=== PATIENT | female | born 1955 | race Caucasian/White ===

== ENCOUNTER 2019-05-22 09:08 | Day surgery (SDC) | payer MEDICARE, OTHER ==
[2019-05-21 14:13] VITALS: BMI 30.1
[2019-05-22] MEDS ORDERED: Fentanyl 250 MCG/5 ML VIAL ONE (09:18)
[2019-05-22] MEDS ORDERED: Oxymetazoline HCl 0.05% ( 15 ML ) ONE (09:36)
[2019-05-22] MEDS ORDERED: Rocuronium Bromide 10 MG/ML (10ML VIAL) ONE (09:42)
[2019-05-22] MEDS ORDERED: Lidocaine 1% PF 5 ML VIAL ONE (09:42)
[2019-05-22] MEDS ORDERED: Dexamethasone 20 MG/5 ML VIAL ONE (09:42)
[2019-05-22] MEDS ORDERED: Glycopyrrolate 0.2 MG/ML 5 ML SYRINGE ONE (09:42)
[2019-05-22] MEDS ORDERED: PROPOFOL 200 MG/20 ML VIAL ONE (09:42)
[2019-05-22] MEDS ORDERED: ePHEDrine/0.9% NaCl/PF SYRINGE 50 mg/10 ml ONE (09:42)
[2019-05-22] MEDS ORDERED: Ondansetron PF 4 MG/2 ML Vial ONE (09:42)
[2019-05-22] MEDS ORDERED: Scopolamine 1.5 mg/72 hour Patch ONE (10:04)
[2019-05-22] MEDS ORDERED: Labetalol HCl 100 MG/20 ML VIAL ONE (12:29)
[2019-05-22] MEDS ORDERED: HYDROcodone/Acetaminophen 5/325 mg Tablet ONE (14:02)
--- NOTE | 2019-05-23 07:36 | OP ---
DATE OF PROCEDURE: 05/22/2019 PREOPERATIVE DIAGNOSES: 1. Chronic rhinosinusitis. 2. Bilateral inferior turbinate hypertrophy. 3. Nasal obstruction. POSTOPERATIVE DIAGNOSES: 1. Chronic rhinosinusitis. 2. Bilateral inferior turbinate hypertrophy. 3. Nasal obstruction. PROCEDURES PERFORMED: 1. Bilateral endoscopic sinus surgery, total ethmoidectomies. 2. Bilateral endoscopic sinus surgery, maxillary antrostomies. 3. Bilateral endoscopic sinus surgery, frontal sinusotomies. 4. Bilateral endoscopic sinus surgery, sphenoidotomies. 5. Bilateral inferior turbinate submucosal resection. ESTIMATED BLOOD LOSS: 20 mL. COMPLICATIONS: None. ANESTHESIA: GETA. DESCRIPTION OF PROCEDURE: Following this, 1% lidocaine with 1:100,000 epinephrine were injected into the middle turbinates and lateral nasal wall bilaterally. Following this, the 0-degree endoscope was used to visualize the middle turbinate and the middle turbinate was medially fractured using a Brundidge elevator. Following this, the uncinate process was identified and was examined. The uncinate process was noted to be inflamed and laterally displaced bilaterally. Following this, a ball-ended probe was used to anteriorly fracture the uncinate process bilaterally. Following this, the 0-degree microdebrider and the up-biting Blakesley forceps were used to remove the uncinate process bilaterally. Following this, the natural maxillary sinus ostia was identified with the 0-degree endoscope and the ball-ended probe. The natural maxillary ostia were then widened using a 40-degree microdebrider and the straight Blakesley forceps bilaterally. Following this, the ethmoidal bulla was identified bilaterally. A 0-degree microdebrider was used to puncture the ethmoidal bulla on its medial and inferior aspect bilaterally. Following this, the 0-degree microdebrider and the up-biting Blakesley forceps were used to remove the ethmoidal bulla. Following this, the grand lamella was identified posterior to this area and was punctured using the 0-degree microdebrider bilaterally. Following this, the ethmoidal cells were opened from the posterior to the anterior using the 0-degree microdebrider, the 40-degree microdebrider and the up-biting Blakesley forceps bilaterally. Following this, the 45-degree endoscope and the 40-degree microdebrider blade were used to further remove the anterior ethmoidal cells to the level of the frontal sinus recess bilaterally. Following this, the sphenoid sinuses were approached through the previous ethmoidectomies using the Peters tip suction. The anterior wall of the sphenoid sinus was identified and was punctured using a Peters tip suction and then the sphenoidotomy was then widened medially and inferiorly using the 0-degree microdebrider bilaterally. Following this, the 45-degree endoscope and the 40-degree microdebrider blade were used to further open the anterior ethmoidal cells and frontal recess and frontal sinus ostia bilaterally. Following this, nasal cavity was irrigated and NasoPore packing was placed within the middle meatus. The inferior turbinates were then punctured with a submucosal microdebrider and submucosal resection was performed of the anterior and inferior portions of the inferior turbinates bilaterally. The patient tolerated the procedure well. Job ID: [id number]
== END 2019-05-22 14:25 | disposition home or self-care (01) ==
LOC: SDC 09:08
PROVIDERS: ATTEND Otolaryngology Plastic Surgery within the Head & Neck
PROC: 09TL0ZZ Resection of Nasal Turbinate, Open Approach (ICD-10-PCS; principal; 2019-05-22)
PROC: 09TV8ZZ Resection of Left Ethmoid Sinus, Via Natural or Artificial Opening Endoscopic (ICD-10-PCS; 2019-05-22)
PROC: 09TU8ZZ Resection of Right Ethmoid Sinus, Via Natural or Artificial Opening Endoscopic (ICD-10-PCS; 2019-05-22)
PROC: 099T8ZZ Drainage of Left Frontal Sinus, Via Natural or Artificial Opening Endoscopic (ICD-10-PCS; 2019-05-22)
PROC: 099W8ZZ Drainage of Right Sphenoid Sinus, Via Natural or Artificial Opening Endoscopic (ICD-10-PCS; 2019-05-22)
PROC: 099X8ZZ Drainage of Left Sphenoid Sinus, Via Natural or Artificial Opening Endoscopic (ICD-10-PCS; 2019-05-22)
PROC: 099Q8ZZ Drainage of Right Maxillary Sinus, Via Natural or Artificial Opening Endoscopic (ICD-10-PCS; 2019-05-22)
PROC: 099R8ZZ Drainage of Left Maxillary Sinus, Via Natural or Artificial Opening Endoscopic (ICD-10-PCS; 2019-05-22)
PROC: 099S8ZZ Drainage of Right Frontal Sinus, Via Natural or Artificial Opening Endoscopic (ICD-10-PCS; 2019-05-22)
DX: J32.9 Chronic sinusitis, unspecified (principal); J34.3 Hypertrophy of nasal turbinates; J34.89 Other specified disorders of nose and nasal sinuses; J30.9 Allergic rhinitis, unspecified; E03.9 Hypothyroidism, unspecified; I10 Essential (primary) hypertension; Z87.891 Personal history of nicotine dependence; Z79.899 Other long term (current) drug therapy; Z88.0 Allergy status to penicillin; Z88.2 Allergy status to sulfonamides
CPT/HCPCS: 85014; 85018; J0131; J1100; J2001; J2405; J2704; J3010

== ENCOUNTER 2019-07-24 09:52 | Outpatient (CLI) | payer MEDICARE, OTHER ==
--- NOTE | 2019-07-24 10:58 | ULT ---
THYROID ULTRASOUND: HISTORY: Hypothyroidism. COMPARISON: None. FINDINGS: Thyroid isthmus measures 0.31 cm. Right thyroid lobe measures 1.3 x 1.4 x 4.1 cm. Left thyroid lobe measures 1.3 x 1.6 x 4.0 cm. In the lower pole the left thyroid lobe is a solid echotexture isoechoic mass, measuring 1.3 x 0.9. Enlarged left supraclavicular lymph node, measuring 1.9 x 0.6 x 0.8 cm. Enlarged right supraclavicular lymph node, measuring 1.0 x 0.5 cm, 2.5 x 0.7 cm and 2.1 x 2.6 cm. IMPRESSION: 1. Solid nodule in the lower pole the left thyroid lobe. Patient states that this has been biopsied b efore. Please refer to previous pathologic diagnosis. If pathologic diagnosis is not available, consider six month follow-up ultrasound. 2. Enlarged bilateral supraclavicular lymph nodes of uncertain significance in etiology. Correlate cl inically. Consider post contrast soft tissue neck CT. CODE T Transcribed Date/Time: 07/24/2019 11:35 AM
== END 2019-07-24 09:53 | disposition home or self-care (01) ==
LOC: SCSULT 09:52
PROVIDERS: ATTEND Internal Medicine Endocrinology, Diabetes & Metabolism
DX: E03.9 Hypothyroidism, unspecified (principal); E04.1 Nontoxic single thyroid nodule
CPT/HCPCS: 76536

== ENCOUNTER 2019-08-14 09:54 | Outpatient (CLI) | payer MEDICARE, OTHER ==
--- NOTE | 2019-08-14 14:01 | CT ---
CT neck soft tissues with contrast: DATE: 08/14/2019 HISTORY: 64-year-old female with enlarged supraclavicular lymph nodes on thyroid ultrasound COMPARISON: No prior neck CTs. FINDINGS: The base of tongue (lingual tonsil) is diffusely enlarged, measuring approximately 3 x 3 x 2 cm. It e xtends laterally encroaching upon the expected locations of the palatine tonsils. The adenoids are not enlarged. There are scattered shotty bilateral cervical lymph nodes. These include bilateral supr aclavicular lymph nodes corresponding to those mentioned on the ultrasound of the neck report. None of them have short axes that exceed 1 cm, and none have necrotic centers or irregular margins. They a re all cyr shaped. Mildly enlarged bilateral jugulodigastric level 2 lymph nodes are present, including one in the left that is approximately 1 x 1.5 cm on axial images. Otherwise, and no major pathology is identified involving the carotid, parotid, submandibular, paraph aryngeal, retropharyngeal, fur puller, perivertebral, and posterior cervical, spaces. No thyromegaly. Larynx is normal. Lung apices are grossly clear. IMPRESSION: 1. Significant enlargement of the lingual tonsil. Hyperplasia versus neoplasia. 2. Scattered shotty cervical lymph nodes are not particularly worrisome. However, if biopsy of the li ngual tonsil reveals malignancy, then PET scan would be recommended to determine whether any of the cervical lymph nodes are FDG-avid.
== END 2019-08-14 09:55 | disposition home or self-care (01) ==
LOC: SCSCT 09:54
PROVIDERS: ATTEND Otolaryngology Plastic Surgery within the Head & Neck
DX: R59.0 Localized enlarged lymph nodes (principal); J35.1 Hypertrophy of tonsils
CPT/HCPCS: 70491; 82565

== ENCOUNTER 2020-09-23 07:20 | Outpatient (CLI) | payer MEDICARE, OTHER | END 2020-09-23 07:21 | disposition home or self-care (01) | LOC: BICULT 07:20 | PROVIDERS: ATTEND Internal Medicine Gastroenterology | DX: R10.30 Lower abdominal pain, unspecified (principal); E04.1 Nontoxic single thyroid nodule; N28.89 Other specified disorders of kidney and ureter; K21.9 Gastro-esophageal reflux disease without esophagitis; R19.4 Change in bowel habit; Z86.010 Personal history of colon polyps | CPT/HCPCS: 76536; 93975 ==